=== PATIENT | female | born 1955 | race Caucasian/White ===

== ENCOUNTER → 2020-07-16 | Outpatient (CLI) | payer MEDICARE, OTHER ==
[~2020-07-16] MED LIST: ASPI81CH PO; CHOL10002 PO; CYAN1000 PO; DAIRY DIGES9000 UNI1 PO; DIGO.25 PO; ESTR2 PO; OXYACE5T PO
== END ==
LOC: LAB 18:26 → LAB SHORT 18:26
DX: Z48.02 Encounter for removal of sutures (principal); L08.9 Local infection of the skin and subcutaneous tissue, unspecified
CPT/HCPCS: 87070; 87077; 87186; 87205

== ENCOUNTER → 2020-12-25 | Outpatient (CLI) | payer MEDICARE, OTHER | END | disposition home or self-care (01) | LOC: LAB SHORT 10:40 → LAB 10:40 | DX: R10.817 Generalized abdominal tenderness (principal) | CPT/HCPCS: 87338 ==

== ENCOUNTER 2022-03-23 07:59 | Day surgery (SDC) | payer MEDICARE, OTHER ==
[~2022-03-23] VITALS: Ht 160 cm; Wt 94.3 kg
[~2022-03-23 07:59] MED LIST changes: +ACET500 PO; -CHOL10002 PO; +DICLOFENAC SOD100 G1; +ELIQUIS5 M2 PO; +KAPSPARGO SPRIN25 MG PO; +LINZESS72 MCG PO; +VITAMIN D31000 UNI1 PO
[2022-03-23] MEDS ORDERED: ELIQUIS2.5 MG (08:23)
[2022-03-23] MEDS ORDERED: ERGO400 (08:25)
[2022-03-23] MEDS ORDERED: MIRALAX17 GM (08:26)
[2022-03-23] MEDS ORDERED: PROBIOTIC1 EA13 (08:27)
== END 2022-03-23 10:39 | disposition home or self-care (01) ==
LOC: ORSCSDS 07:59
PROVIDERS: Student in an Organized Health Care Education/Training Program
PROC: 0DBH8ZX Excision of Cecum, Via Natural or Artificial Opening Endoscopic, Diagnostic (ICD-10-PCS; principal; 2022-03-23 09:15)
PROC: 0DBK8ZX Excision of Ascending Colon, Via Natural or Artificial Opening Endoscopic, Diagnostic (ICD-10-PCS; principal; 2022-03-23 09:15)
PROC: 0DBP8ZX Excision of Rectum, Via Natural or Artificial Opening Endoscopic, Diagnostic (ICD-10-PCS; principal; 2022-03-23 09:15)
PROC: 0DBL8ZX Excision of Transverse Colon, Via Natural or Artificial Opening Endoscopic, Diagnostic (ICD-10-PCS; principal; 2022-03-23 09:15)
PROC: 0DBN8ZX Excision of Sigmoid Colon, Via Natural or Artificial Opening Endoscopic, Diagnostic (ICD-10-PCS; principal; 2022-03-23 09:15)
DX: K62.5 Hemorrhage of anus and rectum (principal); D12.0 Benign neoplasm of cecum; D12.2 Benign neoplasm of ascending colon; D12.3 Benign neoplasm of transverse colon; D12.8 Benign neoplasm of rectum; K57.30 Diverticulosis of large intestine without perforation or abscess without bleeding; K64.8 Other hemorrhoids; K64.4 Residual hemorrhoidal skin tags; K62.89 Other specified diseases of anus and rectum; I48.91 Unspecified atrial fibrillation; Z79.01 Long term (current) use of anticoagulants; Z95.0 Presence of cardiac pacemaker; G47.33 Obstructive sleep apnea (adult) (pediatric); K21.9 Gastro-esophageal reflux disease without esophagitis; Z79.899 Other long term (current) drug therapy; E66.9 Obesity, unspecified; Z68.36 Body mass index [BMI] 36.0-36.9, adult
CPT/HCPCS: 88305; J2405; J2704; J7120

== ENCOUNTER 2023-04-19 06:36 | Day surgery (SDC) | payer MEDICARE, OTHER ==
[~2023-04-19] VITALS: Ht 160 cm; Wt 90.9 kg
[2023-04-19] VITALS (10 sets, daily range): BP systolic 103–122; BP diastolic 52–86
[~2023-04-19 06:36] MED LIST changes: +ELIQUIS2.5 MG PO; +ERGO400 PO; +MIRALAX17 GM PO; +PROBIOTIC1 EA13 PO
--- NOTE | 2023-04-19 10:17 | NUR ---
Patient up to Ambulate independently. Gait steady. Sudhir Paws warming gown applied. Discharge instructions reviewed with patient. Patient verbalizes understanding. Copy given to patient to take home. History, Chart, Medications and Allergies reviewed before start of procedure.Patient States Post-Procedure ride home has been arranged. Discharged via wheelchair to private car for ride home.
== END 2023-04-19 10:19 | disposition home or self-care (01) ==
LOC: ORSCMMR 06:36
PROVIDERS: Surgery
PROC: 06BY0ZC Excision of Hemorrhoidal Plexus, Open Approach (ICD-10-PCS; principal; 2023-04-19 08:00)
DX: K64.2 Third degree hemorrhoids (principal); I48.91 Unspecified atrial fibrillation; Z79.01 Long term (current) use of anticoagulants; I10 Essential (primary) hypertension; Z79.899 Other long term (current) drug therapy; E66.9 Obesity, unspecified; Z68.35 Body mass index [BMI] 35.0-35.9, adult
CPT/HCPCS: 88304; A9270; J1100; J1885; J2250; J2405; J2704; J2795; J3010; J7120

== ENCOUNTER → 2024-08-19 | Outpatient (CLI) | payer MEDICARE, OTHER ==
[2024-08-20 12:05] LABS: Percent Saturation 38.8 % (15.0-50.0)
== END ==
LOC: LAB 10:46 → LAB SHORT 10:46
PROVIDERS: Internal Medicine Hematology & Oncology
DX: D50.0 Iron deficiency anemia secondary to blood loss (chronic) (principal); E53.8 Deficiency of other specified B group vitamins
CPT/HCPCS: 82607; 82728; 82746; 83540; 83550

== ENCOUNTER → 2024-11-21 | Outpatient (CLI) | payer MEDICARE, OTHER ==
[2024-11-21 19:19] LABS: Creatinine, Urine Random 72.3 mg/dL (27.00-270.00); Microalb/Creat Ratio UR, Rand 7.317 mg/g (0.000-30.000); Microalbumin, Random Urine 5.29 mg/L (0.000-20.000)
== END | disposition home or self-care (01) ==
LOC: LAB SHORT 15:34 → LAB 15:34
PROVIDERS: Physician Assistant Medical
DX: N18.30 Chronic kidney disease, stage 3 unspecified (principal)
CPT/HCPCS: 82043; 82570

== ENCOUNTER → 2025-01-20 | Outpatient (CLI) | payer MEDICARE, OTHER ==
[2025-01-20 19:16] LABS: BASOPHILS ABSOLUTE AUTO 0.04 K/mm3 (0.00-0.23); BASOPHILS PERCENT AUTO 0 % (0-2); EOSINOPHILS ABSOLUTE AUTO 0.17 K/mm3 (0.00-0.68); EOSINOPHILS PERCENT AUTO 2 % (0-6); Hematocrit 44.3 % (33.0-51.0); Hemoglobin 14.4 g/dL (11.5-16.0); IMMATURE GRAN ABSOLUTE AUTO 0.05 K/mm3 (0.00-0.10); IMMATURE GRAN PERCENT AUTO 1 % (0-1); LYMPHOCYTES ABSOLUTE AUTO 2.37 K/mm3 (0.84-5.20); LYMPHOCYTES PERCENT AUTO 26 % (21-46); MONOCYTES ABSOLUTE AUTO 0.67 K/mm3 (0.16-1.47); MONOCYTES PERCENT AUTO 7 % (4-13); Mean Corpuscular HGB 28.5 pg (26.0-34.0); Mean Corpuscular HGB Conc 32.5 g/dL (31.5-36.5); Mean Corpuscular Volume 88 fL (80-100); Mean Platelet Volume 11.7 fL (9.1-12.4); NEUTROPHILS ABSOLUTE AUTO 5.87 K/mm3 (1.96-9.15); NEUTROPHILS PERCENT AUTO 64 % (41-73); Platelet Count 332 K/mm3 (150-400); RDW Coefficient Variation 14.5 % (11.7-14.2); RDW Standard Deviation 46.7 fL (35.1-46.3); Red Blood Cell Count 5.05 M/mm3 (3.80-5.20); White Blood Cell Count 9.17 K/mm3 (4.00-11.30)
== END ==
LOC: LAB SHORT 16:55 → LAB 16:55
PROVIDERS: Internal Medicine Hematology & Oncology
DX: E61.1 Iron deficiency (principal)
CPT/HCPCS: 85025